=== PATIENT | male | born 1940 | race Caucasian/White ===

== ENCOUNTER → 2023-05-17 | Outpatient (CLI) | payer OTHER ==
[2023-05-17 12:11] LABS: APPEARANCE,URINE CLEAR (CLEAR); BILIRUBIN,URINE NEGATIVE (NEGATIVE); COLOR,URINE LIGHT YELLOW (YELLOW); GLUCOSE, URINE (UA) NEGATIVE (NEGATIVE); KETONES,URINE NEGATIVE (NEGATIVE); LEUKOCYTE ESTERASE ,URINE NEGATIVE (NEGATIVE); NITRATE,URINE NEGATIVE (NEGATIVE); OCCULT BLOOD,URINE NEGATIVE (NEGATIVE); PH,URINE 6.5 (5.0-8.0); PROTEIN,URINE TRACE mg/dL (NEGATIVE); UROBILINOGEN,URINE <=1.0 mg/dL (<=1.0)
[2023-05-17 12:27] LABS: ALBUMIN 3.5 g/dL (3.4-5.0); CALCIUM, TOTAL 9.5 mg/dL (8.8-10.5); CREATININE 2.24 mg/dL (0.60-1.30); POTASSIUM 4.2 mmol/L (3.5-5.1); TOTAL PROTEIN, SERUM 6.7 g/dL (6.4-8.2)
== END | disposition home or self-care (01) ==
LOC: LABMN 11:36
PROVIDERS: ATTEND Chiropractor
DX: N18.9 Chronic kidney disease, unspecified (principal)
CPT/HCPCS: 80053; 81003